=== PATIENT | female | born 1945 | race Caucasian/White ===

== ENCOUNTER → 2017-09-14 | Outpatient (CLI) | payer MEDICARE, OTHER ==
[2017-09-14 14:05] LABS: C-REACTIVE PROTEIN 8.4 mg/L (<10.0); URIC ACID 5.1 mg/dL (2.5-7.5)
[2017-09-16 07:14] LABS: CYCLIC CITRUL PEPTIDE IGG/A AB 109 units (0-19)
== END ==
LOC: OD 12:39
PROVIDERS: ATTEND Family Medicine
DX: M65.852 Other synovitis and tenosynovitis, left thigh (principal)
CPT/HCPCS: 36415; 82306; 84550; 85652; 86038; 86140; 86200; 86430